=== PATIENT | female | born 1980 | race Caucasian/White ===

== ENCOUNTER 2017-01-18 20:52 | Emergency (ER) | payer OTHER ==
[2017-01-18] MEDS ORDERED: NS 1,000 ML IV ONE (21:36)
--- NOTE | 2017-01-18 21:37 | EDPHY ---
H & P Stated Complaint: NAUAEA VOMITINGCONSTIPATION ISSUES WITH Time Seen by Provider: 01/18/17 21:29 HPI/ROS: CHIEF COMPLAINT: Dehydration HISTORY OF PRESENT ILLNESS: Patient is a 36-year-old female who is 12 weeks 6 days by ultrasound who comes to the emergency department complaining of dehydration. She has had hyperemesis gravidarum with both pregnancies. She is taking Zofran at home. 4 days ago she had to increase taking the Zofran to every 8 hours. Previously she had only taken it once each morning. She felt today that she was tired and run down. Her OBGYN suggested that she come here to be hydrated. She took a dose of Zofran at 7 o'clock this evening and does not feel nauseous currently. No fevers. No abdominal pain. No cramping. No bleeding. No discharge. No urinary symptoms. She also has mild constipation. REVIEW OF SYSTEMS: Constitutional: denies: chills, fever, recent illness, recent injury EENTM: denies: blurred vision, double vision, nose congestion Respiratory: denies: cough, shortness of breath Cardiac: denies: chest pain, irregular heart rate, lightheadedness, palpitations Gastrointestinal/Abdominal: See HPI denies: abdominal pain, diarrhea, blood streaked stools Genitourinary: denies: dysuria, frequency, hematuria, pain Musculoskeletal: denies: joint pain, muscle pain Skin: denies: lesions, rash, jaundice, bruising Neurological: denies: headache, numbness, paresthesia, tingling, dizziness, weakness Hematologic/Lymphatic: denies: blood clots, easy bleeding, easy bruising Immunologic/allergic: denies: HIV/AIDS, transplant EXAM: GENERAL: Well-appearing, well-nourished and in no acute distress. HEAD: Atraumatic, normocephalic. EYES: Pupils equal round and reactive to light, extraocular movements intact, sclera anicteric, conjunctiva are normal. ENT: TMs normal, nares patent, oropharynx clear without exudates. Moist mucous membranes. NECK: Normal range of motion, supple without lymphadenopathy or JVD. LUNGS: Breath sounds clear to auscultation bilaterally and equal. No wheezes rales or rhonchi. HEART: Regular rate and rhythm without murmurs, rubs or gallops. ABDOMEN: Gravid uterus, nontender, no cramping BACK: No CVA tenderness, no spinal tenderness, step-offs or deformities EXTREMITIES: Normal range of motion, no pitting or edema. No clubbing or cyanosis. NEUROLOGICAL: Cranial nerves II through XII grossly intact. Normal speech, normal gait. 5/5 strength, normal movement in all extremities, normal sensation PSYCH: Normal mood, normal affect. SKIN: Warm, dry, normal turgor, no visible rashes or lesions. Source: Patient Exam Limitations: No limitations - Personal History LMP (Females 10-55): EDC: 07/27/17 Current Tetanus/Diphtheria Vaccine: Unsure Current Tetanus Diphtheria and Acellular Pertussis (TDAP): Unsure - Medical/Surgical History Hx Asthma: No Hx Chronic Respiratory Disease: No Hx Diabetes: No Hx Cardiac Disease: No Hx Renal Disease: No Hx Cirrhosis: No Hx Alcoholism: No Hx HIV/AIDS: No Hx Splenectomy or Spleen Trauma: No Other PMH: DENIES - Family History Significant Family History: No pertinent family hx - Social History Smoking Status: Never smoked Alcohol Use: Sober Drug Use: None Constitutional: Initial Vital Signs Temperature (C) 37.0 C 01/18/17 20:54 Heart Rate 62 01/18/17 20:54 Respiratory Rate 16 01/18/17 20:54 Blood Pressure 104/63 01/18/17 20:54 O2 Sat (%) 97 01/18/17 20:54 O2 Delivery Mode Room Air Allergies/Adverse Reactions: No Known Allergies Allergy (Unverified 01/18/17 20:57) Home Medications: Medication Instructions Recorded Docusate Sodium [Colace 100 MG (*)] 100 mg PO BID 01/18/17 Ondansetron HCl [Zofran] 4 mg PO 01/18/17 Medical Decision Making ED Course/Re-evaluation: 11:12 p.m. the patient is received 2 L of IV fluids. She feels much better. She is urinating. She is eager to go home. She is stable vital signs her lab work is unremarkable. We discussed follow-up and indications for returning. She declines prescriptions. Differential Diagnosis: Partial list of the Differential diagnosis considered include but were not limited to; hyperemesis gravidarum, dehydration and although unlikely based on the history and physical exam, I also considered urinary tract infection, miscarriage. I discussed these differential diagnoses and the plan with the patient as well as the usual and expected course. The patient understands that the diagnosis is provisional and that in medicine we are not always correct and that further workup is often warranted. Usual and customary warnings were given. All of the patient's questions were answered. The patient was instructed to return to the emergency department should the symptoms at all worsen or return, otherwise to followup with the physician as we discussed. - Data Points Laboratory Results: Laboratory Results 01/18/17 21:35 Medications Given: Discontinued Medications Sodium Chloride (Ns) 1,000 mls @ 0 mls/hr IV EDNOW ONE; Wide Open PRN Reason: Protocol Stop: 01/18/17 21:37 Last Admin: 01/18/17 21:45 Dose: 1,000 mls Sodium Chloride (Ns) 1,000 mls @ 0 mls/hr IV EDNOW ONE; Wide Open PRN Reason: Protocol Stop: 01/18/17 21:37 Last Admin: 01/18/17 21:48 Dose: 1,000 mls Departure - Departure Disposition: Home, Routine, Self-Care Clinical Impression: Hyperemesis gravidarum Condition: Fair Instructions: Hyperemesis Gravidarum (ED) Referrals: NONE *PRIMARY CARE P,. [Primary Care Provider] - As per Instructions
[2017-01-18] MEDS: NS 1,000 ML IV ONE ×2 (21:44→21:45)
[2017-01-18 22:04] LABS: ANION GAP 11 mEq/L (8-16); CALCIUM 8.9 mg/dL (8.5-10.4); CARBON DIOXIDE 24 mEq/l (22-31); CHLORIDE 98 mEq/L (97-110); CREATININE 0.7 mg/dL (0.6-1.0); GLOMERULAR FILTRATION RATE > 60; GLUCOSE 79 mg/dL (70-100); POTASSIUM 3.7 mEq/L (3.5-5.2); SODIUM 133 mEq/L (134-144)
[2017-01-18 23:30] VITALS: BP 87/63; PULSE 60; RESP 15; TEMP 98.1; O2SAT 100
== END 2017-01-18 23:30 | disposition home or self-care (01) ==
DX: O21.0 Mild hyperemesis gravidarum (principal); E86.9 Volume depletion, unspecified; Z3A.13 13 weeks gestation of pregnancy

== ENCOUNTER 2017-02-22 09:28 | Emergency (ER) | payer OTHER ==
[2017-02-22] MEDS ORDERED: METOCLOPRAMIDE 10 MG/2 ML VIAL IVP ONE (10:11)
--- NOTE | 2017-02-22 10:14 | EDPHY ---
H & P Time Seen by Provider: 02/22/17 09:48 HPI/ROS: CHIEF COMPLAINT: Vomiting, diarrhea HISTORY OF PRESENT ILLNESS: 36-year-old female presents to the emergency department with multiple episodes of vomiting and now diarrhea. The patient is approximately 17 weeks with an EDC of 07/27/2017. She has been nauseous and has been vomiting over the last 10 weeks of her . She has tried Zofran without relief. She states initially it was helping but now has not had any relief especially last several days. No recent travel. No known ill contacts. No blood in her stool or hematemesis. She has no vaginal bleeding or spotting. She is feeling the baby move. She was developing some very mild pain in her lower pubic area. No back pain. No urinary symptoms. No chest pain or difficulty breathing. REVIEW OF SYSTEMS: Constitutional: No fever, no chills. Eyes: No double or blurry vision. ENT: No sore throat. Respiratory: No cough, no shortness of breath. Cardiac: No chest pain. Gastrointestinal: Vomiting, diarrhea as above. Genitourinary: No dysuria. Musculoskeletal: No neck or back pain. Skin: No rashes. Neurological: No headache. Past Medical/Surgical History: 2 para 1, EDC 07/27/2017 Social History: Smoking Status: Never smoked Physical Exam: General Appearance: Alert, no distress. Eyes: Pupils equal and round. Extraocular motions are all intact. ENT: Mouth: Mucous membranes moist. Respiratory: No wheezing, rhonchi, or rales, lungs are clear to auscultation. Cardiovascular: Regular rate and rhythm. Gastrointestinal: Gravid uterus. Nontender to palpate. heart tones noted, strong at 150. No CVA tenderness bilaterally. Neurological: Alert and oriented x 3, cranial nerves II through XII grossly intact Skin: Warm and dry, no rashes. Musculoskeletal: Nontender to palpate along the cervical, thoracic or lumbar spine. Neck is supple. Extremities: Full range of motion and no peripheral edema. Psychiatric: Patient is oriented X 3, there is no agitation. Constitutional: Initial Vital Signs Temperature (C) 37.2 C 02/22/17 09:34 Heart Rate 86 02/22/17 09:34 Respiratory Rate 18 02/22/17 09:34 Blood Pressure 95/69 L 02/22/17 09:34 O2 Sat (%) 97 02/22/17 09:34 O2 Delivery Mode Room Air Allergies/Adverse Reactions: No Known Allergies Allergy (Verified 02/22/17 09:38) Home Medications: Medication Instructions Recorded Ondansetron HCl [Zofran] 4 mg PO 01/18/17 Metoclopramide [Reglan 10 mg tab 10 mg PO Q12 PRN #10 tab 02/22/17 (*)] Medical Decision Making ED Course/Re-evaluation: 36-year-old female presents to the emergency department with nausea vomiting. She is 17 weeks and has a history of hyperemesis gravidarum. She has required IV fluids. She tried Zofran over last few days without relief. She was supposed to pick up and delivery driver a prescription for Reglan, however this was not available at the pharmacy. Presents to the emergency department feeling nauseous. heart tones are obtained which are strong at 150. Patient received IV normal saline as well as 10 mg of IV Reglan. Her chemistries were all within normal limits. Patient was feeling better. She is tolerating p.o. fluids and is comfortable being discharged home. Differential Diagnosis: Including but not limited to hyperemesis gravidarum, dehydration, electrolyte abnormality - Data Points Laboratory Results: Laboratory Results 02/22/17 09:51 02/22/17 09:51 Sodium 138 mEq/L mEq/L (134-144) Potassium 3.9 mEq/L mEq/L (3.5-5.2) Chloride 106 mEq/L mEq/L (97-110) Carbon Dioxide 22 mEq/l mEq/l (22-31) Anion Gap 10 mEq/L mEq/L (8-16) BUN 12 mg/dL mg/dL (7-23) Creatinine 0.6 mg/dL mg/dL (0.6-1.0) Estimated GFR > 60 Glucose 92 mg/dL mg/dL (70-100) Calcium 8.7 mg/dL mg/dL (8.5-10.4) Medications Given: Discontinued Medications Metoclopramide HCl (Reglan Injection) 10 mg IVP EDNOW ONE Stop: 02/22/17 10:12 Last Admin: 02/22/17 10:26 Dose: 10 mg Departure - Departure Disposition: Home, Routine, Self-Care Clinical Impression: Hyperemesis gravidarum, Dehydration Condition: Good Instructions: Hyperemesis Gravidarum (ED), Dehydration (ED) Additional Instructions: Clear liquids and slowly advance diet as tolerated. Reglan as needed for symptoms of nausea and vomiting. Follow-up with your OBGYN this week. Referrals: Ginger Burnham DO [Doctor of Osteopathy] - 1-2 days without fail Prescriptions: Metoclopramide [Reglan 10 mg tab (*)] 10 mg PO Q12 PRN #10 tab PRN Reason: Nausea/Vomiting, Can'T Take Po
[2017-02-22 10:47] LABS: ANION GAP 10 mEq/L (8-16); CALCIUM 8.7 mg/dL (8.5-10.4); CARBON DIOXIDE 22 mEq/l (22-31); CHLORIDE 106 mEq/L (97-110); CREATININE 0.6 mg/dL (0.6-1.0); GLOMERULAR FILTRATION RATE > 60; GLUCOSE 92 mg/dL (70-100); POTASSIUM 3.9 mEq/L (3.5-5.2); SODIUM 138 mEq/L (134-144)
[2017-02-22 11:55] VITALS: BP 104/57; PULSE 71; RESP 16; TEMP 99.1; O2SAT 93
== END 2017-02-22 12:04 | disposition home or self-care (01) ==
DX: O21.1 Hyperemesis gravidarum with metabolic disturbance (principal); Z3A.17 17 weeks gestation of pregnancy
CPT/HCPCS: 96374; J2765

== ENCOUNTER → 2017-03-14 | Outpatient (CLI) | payer OTHER | LOC: FIMAGING 11:31 | PROVIDERS: ATTEND Obstetrics & Gynecology | DX: O09.522 Supervision of elderly multigravida, second trimester (principal); O34.219 Maternal care for unspecified type scar from previous cesarean delivery; Z3A.20 20 weeks gestation of pregnancy ==